=== PATIENT | female | born 1965 | race Caucasian/White ===

== ENCOUNTER 2023-05-29 07:01 | Day surgery (SDC) | payer OTHER ==
[~2023-05-29] VITALS: Ht 154.9 cm; Wt 64.4 kg
[2023-05-29] MEDS ORDERED: MIDAZOLAM 2 MG/2 ML VIAL ONE (08:02)
[2023-05-29] MEDS ORDERED: LIDOCAINE 2% 100 MG/5 ML UJET TP ONE ×2 (08:02→11:35)
[2023-05-29] MEDS ORDERED: fentaNYL citrate 0.05 MG/ML VIAL ONE (08:02)
[2023-05-29] MEDS ORDERED: LIDOCAINE 2% 100 MG/5 ML UJET TP SCH (09:45)
[2023-05-29] MEDS ORDERED: MIDAZOLAM 2 MG/2 ML VIAL IVP SCH (09:45)
[2023-05-29] MEDS ORDERED: fentaNYL citrate 0.05 MG/ML VIAL IVP SCH (09:45)
[2023-05-29] MEDS ORDERED: fentaNYL citrate 0.05 MG/ML VIAL IVP ONE (11:35)
[2023-05-29] MEDS ORDERED: MIDAZOLAM 2 MG/2 ML VIAL IVP ONE (11:35)
== END 2023-05-29 09:45 | disposition home or self-care (01) ==
LOC: MOR 07:01 → MMU 07:02 → MOR 09:45
PROVIDERS: ATTEND Internal Medicine Gastroenterology
DX: R10.84 Generalized abdominal pain (principal); R14.0 Abdominal distension (gaseous); K57.30 Diverticulosis of large intestine without perforation or abscess without bleeding; R13.10 Dysphagia, unspecified; M19.90 Unspecified osteoarthritis, unspecified site; K21.9 Gastro-esophageal reflux disease without esophagitis; Z98.890 Other specified postprocedural states; Z79.899 Other long term (current) drug therapy
CPT/HCPCS: 36415; 43239; 45378; 86677; J2250; J3010